=== PATIENT | female | born 1970 | race Caucasian/White ===

== ENCOUNTER 2021-04-30 20:23 | Inpatient (IN) | payer SELFPAY ==
[2021-04-30 20:57] LABS: Hemoglobin 16.2 g/dL (12.0-16.0); Mean Corpuscular HGB CONC 33.4 g/dL (32.0-36.0); Mean Corpuscular Hemoglobin 40.3 pg (27.0-31.0); Mean Platelet Volume 7.9 fL (7.4-10.4); Platelet Count 254 thou/uL (130-400); Red Blood Cell (RBC) Count 4.02 mill/uL (4.20-5.40); White Blood Cell (WBC) Count 8.4 thou/uL (4.8-10.8)
[2021-04-30 21:10] LABS: ALT (SGPT) 33 U/L (8-55); AST (SGOT) 64 U/L (5-34); Albumin 3.2 g/dL (3.5-5.0); Alkaline Phosphatase 180 U/L (40-110); Anion Gap 22 mmol/L (10-20); BUN (Urea Nitrogen) 6 mg/dL (7.0-18.7); Bilirubin, Total 0.4 mg/dL (0.2-1.2); Calc. Creatinine Clearance 0 mL/min (70-130); Calcium 8.8 mg/dL (7.8-10.44); Carbon Dioxide 20 mmol/L (22-29); Chloride 93 mmol/L (98-107); Globulin 2.8 g/dL (2.4-3.5); Glucose 426 mg/dL (70-105); Potassium 3.5 mmol/L (3.5-5.1); Sodium 131 mmol/L (136-145)
[2021-04-30 21:11] LABS: #Basophils 0.1 thou/uL (0.0-0.2); #Eosinphils 0.1 thou/uL (0.0-0.7); #Lymphocytes 3.4 thou/uL (1.20-3.40); #Monocytes 0.6 thou/uL (0.11-0.59); #Neutrophils 4.3 thou/uL (1.40-6.50); %Basophils 0.8 % (0.0-1.0); %Eosinophils 0.8 % (0.0-10.0); %Lymphocytes 40.2 % (21.0-51.0); %Monocytes 6.9 % (0.0-10.0); %Neutrophils 51.3 % (42.0-75.0); MDiff Complete? YES; Macrocytosis SLIGHT = 6-15 cells (100X) (0-5/hpf); Ovalocytes SLIGHT = 2-5 cells (100X) (0-1/hpf); Platelet Morphology Comment Appears Adequate
[2021-04-30 21:47] LABS: Actual Bicarbonate (HCO3v) 22 mEq/L (22-28); Analyzer IN Cardio ER; Base Excess -3.8 mEq/L (-2.0 to +3.0); Calcium, Ionized (venous) 1.05 mmol/L (1.16-1.32); Chloride (VBG) 97 mmol/L (98-106); Hemoglobin (Hb) 14.5 g/dL (11.7-16.0); Potassium (VBG) 3.04 mmol/L (3.70-5.30); pH (venous) 7.33 (7.32-7.43)
[2021-04-30] MEDS ORDERED: Thiamine HCl 200 MG/2 ML VIAL SLOW IVP SCH (22:30)
[2021-04-30] MEDS ORDERED: Folic Acid 1 MG, Multivitamins, Adult 10 ML in Dextrose 5 %-0.45 % NaCl 1,000 ML IV SCH (22:30)
[2021-04-30 22:51] LABS: Bacteria/HPF 3+ HPF (None Seen); Bilirubin Negative (Negative); Blood, Urine Negative (Negative); Clarity Clear (Clear); Glucose, Urine (Dipstick) Greater than 1000 mg/dL (Negative); Ketone, Urine Negative (Negative); Leukocyte 75 Leu/uL (Negative); Nitrite 2+ (Negative); Protein, Urine (Dipstick) Negative (Neg-Trace); RBC/HPF 0-3 HPF (0-3); Specific Gravity, Urine 1.008 (1.002-1.036); Squamous Epithelial None Seen HPF (0-3); Urobilinogen Normal mg/dL (Less than 2); WBC/HPF 0-3 HPF (0-3)
[2021-04-30] MEDS ORDERED: Nicotine 21 MG PATCH TOP SCH (23:00)
[2021-04-30] MEDS ORDERED: Sodium Chloride 0.9% 1,000 ML IV SCH (23:45)
[2021-05-01] MEDS ORDERED: Ondansetron PF 4 MG/2 ML Vial IVP PRN (00:14)
[2021-05-01] MEDS ORDERED: Dextrose 50% Abboject 50 ML SYRINGE SLOW IVP PRN (00:15)
[2021-05-01] MEDS ORDERED: HumaLOG 300 UNITS/3 ML VIAL SC PRN (00:15)
[2021-05-01] MEDS ORDERED: Dextrose 5% in Water 1,000 ML IV PRN (00:15)
[2021-05-01 00:35] VITALS: BMI 28.5
[2021-05-01] MEDS ORDERED: Lorazepam 2 MG/ML VIAL IM PRN (01:02)
[2021-05-01] MEDS ORDERED: Lorazepam 1 MG TAB PO PRN (01:02)
[2021-05-01] MEDS ORDERED: Electrolyte Replacement Protocol 1 EACH FS SCH (01:15)
[2021-05-01 01:29] LABS: Lactic Acid 3.6 mmol/L (0.5-2.2)
[2021-05-01] MEDS: Lorazepam 1 MG TAB PO SCH ×4 (02:14→20:08)
[2021-05-01 04:31] LABS: #Basophils 0.1 thou/uL (0.0-0.2); #Eosinphils 0.1 thou/uL (0.0-0.7); #Lymphocytes 1.9 thou/uL (1.20-3.40); #Monocytes 0.4 thou/uL (0.11-0.59); %Basophils 1.1 % (0.0-1.0); %Eosinophils 1.7 % (0.0-10.0); %Lymphocytes 43.1 % (21.0-51.0); %Neutrophils 44.1 % (42.0-75.0); Hemoglobin 13.4 g/dL (12.0-16.0); Mean Corpuscular HGB CONC 34.5 g/dL (32.0-36.0); Mean Corpuscular Hemoglobin 41.3 pg (27.0-31.0); Platelet Count 173 thou/uL (130-400); RBC Distribution Width 13.9 % (11.5-14.5); Red Blood Cell (RBC) Count 3.25 mill/uL (4.20-5.40); White Blood Cell (WBC) Count 4.4 thou/uL (4.8-10.8)
[2021-05-01 04:38] LABS: ALT (SGPT) 29 U/L (8-55); AST (SGOT) 56 U/L (5-34); Albumin 2.6 g/dL (3.5-5.0); Alkaline Phosphatase 134 U/L (40-110); Anion Gap 12 mmol/L (10-20); BUN (Urea Nitrogen) 5 mg/dL (7.0-18.7); Bilirubin, Total 0.4 mg/dL (0.2-1.2); Calc. Creatinine Clearance 115 mL/min (70-130); Calcium 8.1 mg/dL (7.8-10.44); Carbon Dioxide 28 mmol/L (22-29); Chloride 101 mmol/L (98-107); Globulin 2.5 g/dL (2.4-3.5); Glucose 200 mg/dL (70-105); Potassium 3.4 mmol/L (3.5-5.1); Protein, Total 5.1 g/dL (6.0-8.3); Sodium 138 mmol/L (136-145)
[2021-05-01] MEDS ORDERED: Potassium Chloride 20 MEQ TAB PO SCH (07:00)
[2021-05-01] MEDS ORDERED: NPH, Human Insulin Isophane 300 UNIT/3 ML VIAL SC SCH ×2 (09:00→21:00)
[2021-05-01] MEDS: Enoxaparin Sodium 40 MG/0.4 ML SYRINGE SC SCH (09:50)
[2021-05-01] MEDS: Multivit, Therapeutic 1 TAB PO SCH (09:51)
[2021-05-01] MEDS: Folic Acid 1 MG TAB PO SCH (09:51)
[2021-05-01] MEDS: HumaLOG 300 UNITS/3 ML VIAL SC PRN (11:29)
[2021-05-01] MEDS ORDERED: Metoprolol Tartrate 5 MG/5 ML VIAL IVP PRN (15:05)
[2021-05-01] MEDS ORDERED: Magnesium Oxide 400 MG TAB PO SCH (15:15)
[2021-05-01] MEDS ORDERED: HYDROcodone/Acetaminophen 5/325 mg Tablet PO PRN (15:15)
[2021-05-01 17:27] LABS: Magnesium 1.2 mg/dL (1.6-2.6)
[2021-05-01] MEDS: Diazepam 5 MG TAB PO SCH (20:09)
[2021-05-01] MEDS: Carvedilol 6.25 MG TAB PO SCH (20:09)
[2021-05-02] MEDS ORDERED: Nicotine 21 MG PATCH TD SCH
[2021-05-02] MEDS ORDERED: Lorazepam 1 MG TAB PO PRN (01:03)
[2021-05-02] MEDS: Lorazepam 1 MG TAB PO SCH ×2 (02:50→09:09)
[2021-05-02 04:50] LABS: ALT (SGPT) 34 U/L (8-55); AST (SGOT) 75 U/L (5-34); Albumin 2.6 g/dL (3.5-5.0); Alkaline Phosphatase 133 U/L (40-110); Anion Gap 15 mmol/L (10-20); BUN (Urea Nitrogen) 6 mg/dL (7.0-18.7); Bilirubin, Total 0.8 mg/dL (0.2-1.2); Calc. Creatinine Clearance 117 mL/min (70-130); Calcium 8.3 mg/dL (7.8-10.44); Carbon Dioxide 24 mmol/L (22-29); Chloride 102 mmol/L (98-107); Globulin 2.5 g/dL (2.4-3.5); Glucose 123 mg/dL (70-105); Potassium 3.5 mmol/L (3.5-5.1); Protein, Total 5.1 g/dL (6.0-8.3); Sodium 137 mmol/L (136-145)
[2021-05-02] MEDS ORDERED: Potassium Chloride 20 MEQ TAB PO SCH (05:45)
[2021-05-02 06:24] LABS: #Eosinphils 0.1 thou/uL (0.0-0.7); #Monocytes 0.4 thou/uL (0.11-0.59); #Neutrophils 3.5 thou/uL (1.40-6.50); %Basophils 0.3 % (0.0-1.0); %Eosinophils 1.5 % (0.0-10.0); %Lymphocytes 33.4 % (21.0-51.0); %Monocytes 6.6 % (0.0-10.0); %Neutrophils 58.2 % (42.0-75.0); Hemoglobin 15.4 g/dL (12.0-16.0); Mean Corpuscular HGB CONC 33.2 g/dL (32.0-36.0); Mean Corpuscular Hemoglobin 39.6 pg (27.0-31.0); Platelet Count 185 thou/uL (130-400); RBC Distribution Width 13.8 % (11.5-14.5); Red Blood Cell (RBC) Count 3.88 mill/uL (4.20-5.40)
[2021-05-02] MEDS ORDERED: Losartan 25 MG TAB PO SCH (09:00)
[2021-05-02] MEDS ORDERED: Magnesium Oxide 400 MG TAB PO SCH (09:00)
[2021-05-02] MEDS ORDERED: Venlafaxine HCl 37.5 MG TAB PO SCH (09:00)
[2021-05-02] MEDS ORDERED: FLU VACC QS2021-22(6MOS UP)/PF 60 MCG/0.5 ML SYRINGE IM ONE (09:00)
[2021-05-02] MEDS: Multivit, Therapeutic 1 TAB PO SCH (09:09)
[2021-05-02] MEDS: Folic Acid 1 MG TAB PO SCH (09:10)
[2021-05-02] MEDS: Enoxaparin Sodium 40 MG/0.4 ML SYRINGE SC SCH (09:11)
[2021-05-02] MEDS: Carvedilol 6.25 MG TAB PO SCH (09:11)
[2021-05-02] MEDS: Diazepam 5 MG TAB PO SCH (09:38)
[2021-05-02 11:03] VITALS: BP 130/66; TEMP 98.8
[2021-05-02] MEDS: HumaLOG 300 UNITS/3 ML VIAL SC PRN (11:08)
[2021-05-02] MEDS ORDERED: Thiamine HCl 200 MG/2 ML VIAL SLOW IVP SCH (21:00)
[2021-05-03] MEDS ORDERED: Lorazepam 1 MG TAB PO PRN (01:03)
[2021-05-03] MEDS ORDERED: Lorazepam 0.5 MG TAB PO SCH (02:00)
[2021-05-04] MEDS ORDERED: Lorazepam 0.5 MG TAB PO PRN (01:03)
[2021-05-04] MEDS ORDERED: Thiamine 100 MG TAB PO SCH (21:00)
== END 2021-05-02 13:20 | disposition home or self-care (01) | DRG 638 ==
LOC: ERS 20:23 → 2NO 22:09 → INTOOBSV 22:09 → OBSVTOIN 05-01 13:48
PROVIDERS: ADMIT Internal Medicine; ATTEND Internal Medicine
PROC: HZ2ZZZZ Detoxification Services for Substance Abuse Treatment (ICD-10-PCS; principal; 2021-05-01)
DX: E11.65 Type 2 diabetes mellitus with hyperglycemia (principal); F10.139 Alcohol abuse with withdrawal, unspecified; E87.2 Acidosis; R55 Syncope and collapse; I10 Essential (primary) hypertension; E86.0 Dehydration; R00.0 Tachycardia, unspecified; R45.1 Restlessness and agitation; F17.210 Nicotine dependence, cigarettes, uncomplicated; F41.9 Anxiety disorder, unspecified; Y90.7 Blood alcohol level of 200-239 mg/100 ml; Z85.3 Personal history of malignant neoplasm of breast; Z90.11 Acquired absence of right breast and nipple; Z92.21 Personal history of antineoplastic chemotherapy; Z79.4 Long term (current) use of insulin; Z88.8 Allergy status to other drugs, medicaments and biological substances; Z90.89 Acquired absence of other organs; Z98.51 Tubal ligation status; Z85.850 Personal history of malignant neoplasm of thyroid
CPT/HCPCS: 36415; 36416; 70450; 80053; 80307; 81003; 81015; 82607; 82746; 82805; 83605; 83735; 84443; 85025; 93005; 93306; 96372; G0378; J1650; J1815; J3411; J7042; J7050